=== PATIENT | male | born 1975 | race African-American/Black ===

== ENCOUNTER 2017-01-08 02:47 | Emergency (ER) | payer MEDICAID ==
[~2017-01-08] VITALS: Ht 180.3 cm; Wt 127.0 kg
[2017-01-08 02:52] VITALS: BP_SYST 141
[2017-01-08] MEDS ORDERED: NACL 0.9% 1,000 ML IV ONE (03:15)
[2017-01-08 04:55] VITALS: BP_SYST 146
== END 2017-01-08 04:55 | disposition home or self-care (01) ==
LOC: SED 02:47
DX: R00.0 Tachycardia, unspecified (principal); R03.0 Elevated blood-pressure reading, without diagnosis of hypertension
CPT/HCPCS: 96360; 99284; J7030

== ENCOUNTER 2019-05-23 18:02 | Emergency (ER) | payer BC ==
[~2019-05-23] VITALS: Ht 180.3 cm; Wt 131.5 kg
[2019-05-23 18:02] VITALS: BP_SYST 142
--- NOTE | 2019-05-23 18:03 | NUR ---
Dr Bravo examining patient at triage room
--- NOTE | 2019-05-23 18:29 | NUR ---
Patient to ER bed 3 to gown for evaluation. Side rails up. Report given to ANNETTE Rascon.
--- NOTE | 2019-05-23 18:29 | NUR ---
Note matty in EDM - 05/23/19 at 1829 by [email or web address] Patient to ER bed 3 to nunu for evaluation. Side rails up. Report given to ANNETTE Rascon.
[2019-05-23] MEDS ORDERED: KETOROLAC TROMETHAMINE 30 MG VIAL IM ONE (18:30)
--- NOTE | 2019-05-23 18:30 | NUR ---
Patient is awake, alert, and oriented x4. Pastient reports that last night he was rocking back and forth while watching TV, had sudden onset SOB, headache, and blurry vision. Patient called 911 and was cleared by paramedics saying he didn't have a stroke at 0200. Patient came in for a follow up, is complaining of headache 08/15.
--- NOTE | 2019-05-23 18:44 | NUR ---
Patient transported to radiology via wheelchair, accompanied by automotive exhaust emissions technician.
[2019-05-23 18:46] LABS: BASOPHILS % (AUTO) 0.6 % (0.0-2.0); EOSINOPHILS # (AUTO) 0.3 K/uL (0.0-0.4); EOSINOPHILS % (AUTO) 3.2 % (0.0-4.0); HEMATOCRIT 47.9 % (36-54); HEMOGLOBIN 16.7 g/dL (14.0-18.0); LYMPHOCYTES # (AUTO) 2.6 K/uL (1.0-5.5); LYMPHOCYTES % (AUTO) 30.9 % (20.5-51.5); MEAN CORPUSCULAR HEMOGLOBIN 31 pg (27-31); MEAN CORPUSCULAR HGB CONC 35 % (32-36); MEAN CORPUSCULAR VOLUME 89 fL (79.0-98.0); MONOCYTES # (AUTO) 0.6 K/uL (0.0-1.0); MONOCYTES % (AUTO) 7.1 % (1.7-9.3); NEUTROPHILS # (AUTO) 4.9 K/uL (1.8-7.7); NEUTROPHILS % (AUTO) 58.2 % (40.0-70.0); PLATELET COUNT (AUTO) 286 K/uL (130-430); RED BLOOD CELL COUNT(AUTO) 5.38 MIL/uL (4.2-6.2); RED CELL DISTRIBUTION WIDTH 13.3 % (9.0-15.0); WHITE BLOOD COUNT (AUTO) 8.4 K/uL (4.8-10.8)
[2019-05-23 18:59] LABS: ANION GAP 4 (5-15); CALCIUM 9.2 mg/dL (8.4-11.0); CHLORIDE 99 mmol/L (98-107); CREATININE 1.06 mg/dL (0.55-1.30); GLUCOSE 76 mg/dL (70-99); POTASSIUM 3.8 mmol/L (3.5-5.1); SODIUM SERUM 133 mmol/L (136-145); UREA NITROGEN, BLOOD 9 mg/dL (8-21)
[2019-05-23 19:08] LABS: ALANINE AMINOTRANSFERASE 62 U/L (12-78); ALBUMIN 3.9 g/dL (3.4-4.8); ASPARTATE AMINOTRANSFERASE 25 U/L (10-37); TOTAL BILIRUBIN 0.4 mg/dL (0.0-1.0)
--- NOTE | 2019-05-23 19:11 | NUR ---
Report given to ANNETTE Morales for continuation of care.
[2019-05-23 19:12] LABS: GFR AFRICAN AMERICAN 99 mL/min (>90)
[2019-05-23 19:50] VITALS: BP_SYST 141
--- NOTE | 2019-05-23 19:50 | NUR ---
Patient given written and verbal discharge instructions and verbalizes understanding. ER MD discussed with patient the results and treatment provided. Patient in stable condition. ID arm band removed. Rx of Naproxen given. Patient educated on pain management and to follow up with PMD. Pain Scale 0/10. Opportunity for questions provided and answered. Medication side effect fact sheet provided.
== END 2019-05-23 19:50 | disposition home or self-care (01) ==
LOC: SED 18:02
DX: G43.909 Migraine, unspecified, not intractable, without status migrainosus (principal)
CPT/HCPCS: 36415; 70450; 71045; 80053; 84484; 85025; 93005; 96372; 99284; J1885

== ENCOUNTER 2019-09-26 10:55 | Emergency (ER) | payer BC, OTHER ==
[~2019-09-26] VITALS: Ht 182.9 cm; Wt 126.6 kg
[2019-09-26 11:14] VITALS: BP_SYST 160
[2019-09-26 12:15] VITALS: BP_SYST 126
== END 2019-09-26 12:15 | disposition home or self-care (01) ==
LOC: SED 10:55
DX: I49.3 Ventricular premature depolarization (principal)
CPT/HCPCS: 93005; 99283

== ENCOUNTER 2020-01-23 21:37 | Emergency (ER) | payer OTHER ==
[~2020-01-23] VITALS: Ht 182.9 cm; Wt 125.2 kg
[2020-01-23 21:46] VITALS: BP_SYST 155
--- NOTE | 2020-01-23 22:54 | NUR ---
Patient to ER bed H1 to gown for evaluation. Side rails up.
--- NOTE | 2020-01-23 22:55 | NUR ---
Pt brought by self,A&Ox4, pt presents to ER with anxiety and palpitations, skin pink and warm, cap refill <3, VSS,respirations even and unlabored
--- NOTE | 2020-01-23 23:00 | NUR ---
Dr Hodges assessing patient in the hallway
[2020-01-23 23:22] VITALS: BP_SYST 155
--- NOTE | 2020-01-23 23:27 | NUR ---
Patient given written and verbal discharge instructions and verbalizes understanding. ER MD discussed with patient the results and treatment provided. Patient in stable condition. ID arm band removed. Rx of Xanax given. Patient educated on pain management and to follow up with PMD. Pain Scale 0/10. Opportunity for questions provided and answered. Medication side effect fact sheet provided.
== END 2020-01-23 23:27 | disposition home or self-care (01) ==
LOC: SED 21:37
DX: F41.9 Anxiety disorder, unspecified (principal); R03.0 Elevated blood-pressure reading, without diagnosis of hypertension
CPT/HCPCS: 93005; 99283

== ENCOUNTER 2020-02-29 22:52 | Emergency (ER) | payer OTHER ==
[~2020-02-29] VITALS: Ht 182.9 cm; Wt 115.7 kg
[2020-02-29 23:00] VITALS: BP_SYST 160
[2020-02-29 23:20] VITALS: BP_SYST 160
== END 2020-02-29 23:20 | disposition home or self-care (01) ==
LOC: SED 22:52
DX: R00.2 Palpitations (principal); F41.9 Anxiety disorder, unspecified
CPT/HCPCS: 93005; 99283

== ENCOUNTER 2020-09-02 15:41 | Emergency (ER) | payer OTHER, SELFPAY ==
[~2020-09-02] VITALS: Ht 180.3 cm; Wt 111.1 kg
--- NOTE | 2020-09-02 15:45 | NUR ---
triaged in tent
[2020-09-02 15:49] VITALS: BP_SYST 123
--- NOTE | 2020-09-02 15:53 | NUR ---
Dr. Hodges perfoming a exam at this time
--- NOTE | 2020-09-02 15:55 | NUR ---
Pt came to ER with fatigue, no other complaints. Pt states lack of sleep last night, currently in tent, VSS, awaiting MD.
[2020-09-02 16:07] VITALS: BP_SYST 123
--- NOTE | 2020-09-02 16:08 | NUR ---
Patient given written and verbal discharge instructions and verbalizes understanding. ER MD discussed with patient the results and treatment provided. Patient in stable condition. ID arm band removed. No Rx given. Patient educated on pain management and to follow up with PMD. Pain Scale 0/10. Opportunity for questions provided and answered. Medication side effect fact sheet provided.
== END 2020-09-02 16:07 | disposition home or self-care (01) ==
LOC: SED 15:41
DX: R53.83 Other fatigue (principal); R03.0 Elevated blood-pressure reading, without diagnosis of hypertension; Z20.822 Contact with and (suspected) exposure to COVID-19
CPT/HCPCS: 99283; C9803; U0003

== ENCOUNTER 2023-11-10 19:52 | Emergency (ER) | payer BC, OTHER ==
[~2023-11-10] VITALS: Ht 182.9 cm; Wt 120.2 kg
[~2023-11-10 19:52] MED LIST: FEXO180T94 PO
[2023-11-10 20:13] VITALS: BP_SYST 140; PULSE 70; RESP 18; TEMP 97.3; O2SAT 99
[2023-11-10] MEDS ORDERED: IBUP-1971 PO (21:15)
[2023-11-10 21:21] LABS: INFLUENZA TYPE A Negative (NEGATIVE)
[2023-11-10 21:23] LABS: INFLUENZA TYPE B POSITIVE (NEGATIVE)
[2023-11-10] MEDS ORDERED: OSEL75CA PO (21:25)
[2023-11-10 21:42] LABS: BASOPHILS # (AUTO) 0.1 K/uL (0.0-0.2); EOSINOPHILS # (AUTO) 0.3 K/uL (0.0-0.4); EOSINOPHILS % (AUTO) 3.6 % (0.0-4.0); HEMATOCRIT 45.8 % (36-54); HEMOGLOBIN 15.4 g/dL (14.0-18.0); LYMPHOCYTES # (AUTO) 2.1 K/uL (1.0-5.5); LYMPHOCYTES % (AUTO) 26.4 % (20.5-51.5); MEAN CORPUSCULAR HEMOGLOBIN 29 pg (27-31); MEAN CORPUSCULAR HGB CONC 34 % (32-36); MEAN CORPUSCULAR VOLUME 87 fL (79.0-98.0); MONOCYTES # (AUTO) 0.6 K/uL (0.0-1.0); MONOCYTES % (AUTO) 7.4 % (1.7-9.3); NEUTROPHILS # (AUTO) 4.8 K/uL (1.8-7.7); NEUTROPHILS % (AUTO) 61.6 % (40.0-70.0); PLATELET COUNT (AUTO) 268 K/uL (130-430); RED BLOOD CELL COUNT(AUTO) 5.29 MIL/uL (4.2-6.2); RED CELL DISTRIBUTION WIDTH 13.1 % (9.0-15.0); WHITE BLOOD COUNT (AUTO) 7.8 K/uL (4.8-10.8)
[2023-11-10 22:02] LABS: ALBUMIN 3.7 g/dL (3.4-4.8); CALCIUM 8.7 mg/dL (8.4-11.0); CREATININE 1.02 mg/dL (0.55-1.30); POTASSIUM 4.1 mmol/L (3.5-5.1); TOTAL BILIRUBIN 0.6 mg/dL (0.0-1.0); TOTAL PROTEIN, SERUM 7.9 g/dL (6.4-8.3)
[2023-11-10 22:20] VITALS: BP_SYST 140; PULSE 70; RESP 18; TEMP 97.3; O2SAT 99
== END 2023-11-10 22:20 | disposition home or self-care (01) ==
LOC: SED 19:52
DX: J10.1 Influenza due to other identified influenza virus with other respiratory manifestations (principal); M79.10 Myalgia, unspecified site; Z20.822 Contact with and (suspected) exposure to COVID-19; F41.9 Anxiety disorder, unspecified; Z79.899 Other long term (current) drug therapy
CPT/HCPCS: 36415; 80053; 82550; 83735; 85025; 99283

== ENCOUNTER 2024-02-27 20:42 | Emergency (ER) | payer BC ==
[~2024-02-27] VITALS: Ht 182.9 cm; Wt 115.2 kg
[~2024-02-27 20:42] MED LIST changes: +IBUP-1971 PO; +OSEL75CA PO
[2024-02-27 20:57] VITALS: BP_SYST 143; PULSE 70; RESP 20; TEMP 96.9; O2SAT 97
[2024-02-27 21:30] LABS: BASOPHILS # (AUTO) 0.1 K/uL (0.0-0.2); BASOPHILS % (AUTO) 1.1 % (0.0-2.0); EOSINOPHILS # (AUTO) 0.3 K/uL (0.0-0.4); EOSINOPHILS % (AUTO) 3.5 % (0.0-4.0); HEMATOCRIT 44.6 % (36-54); HEMOGLOBIN 15.2 g/dL (14.0-18.0); LYMPHOCYTES % (AUTO) 23.5 % (20.5-51.5); MEAN CORPUSCULAR HEMOGLOBIN 30 pg (27-31); MEAN CORPUSCULAR HGB CONC 34 % (32-36); MEAN CORPUSCULAR VOLUME 87 fL (79.0-98.0); MONOCYTES # (AUTO) 0.5 K/uL (0.0-1.0); MONOCYTES % (AUTO) 5.5 % (1.7-9.3); NEUTROPHILS # (AUTO) 5.7 K/uL (1.8-7.7); NEUTROPHILS % (AUTO) 66.4 % (40.0-70.0); PLATELET COUNT (AUTO) 261 K/uL (130-430); RED BLOOD CELL COUNT(AUTO) 5.12 MIL/uL (4.2-6.2); RED CELL DISTRIBUTION WIDTH 13.8 % (9.0-15.0); WHITE BLOOD COUNT (AUTO) 8.6 K/uL (4.8-10.8)
[2024-02-27 21:55] LABS: ALANINE AMINOTRANSFERASE 27 U/L (12-78); ALBUMIN 3.7 g/dL (3.4-4.8); ANION GAP 10 (5-15); ASPARTATE AMINOTRANSFERASE 18 U/L (10-37); CALCIUM 8.9 mg/dL (8.4-11.0); CARBON DIOXIDE 24 mmol/L (23-29); CHLORIDE 101 mmol/L (98-107); CREATININE 1.12 mg/dL (0.55-1.30); GFR AFRICAN AMERICAN 91 mL/min (>90); GLUCOSE 116 mg/dL (74-106); POTASSIUM 3.3 mmol/L (3.5-5.1); SODIUM SERUM 135 mmol/L (136-145); TOTAL BILIRUBIN 0.4 mg/dL (0.0-1.0); TOTAL PROTEIN, SERUM 7.7 g/dL (6.4-8.3); UREA NITROGEN, BLOOD 13 mg/dL (8-21)
[2024-02-27 21:57] LABS: BILIRUBIN,DIRECT 0.1 mg/dL (0.0-0.3)
[2024-02-27 21:58] LABS: GFR NON AFRICAN-AMERICAN 75 mL/min (>90)
[2024-02-27 22:15] VITALS: BP_SYST 122; PULSE 65; RESP 18; O2SAT 96
[2024-02-27 22:32] LABS: BARBITURATE, URINE NEGATIVE (NEG <=200); BENZODIAZEPINE, URINE NEGATIVE (NEG <=150); CANNABINOID, URINE NEGATIVE (NEG <=50); COCAINE, URINE NEGATIVE (NEG <=150); METHAMPHETAMINES SCREEN,URINE NEGATIVE (NEG <=500); OPIATE, URINE NEGATIVE (NEG <=100); PHENCYCLIDINE SCREEN,URINE NEGATIVE (NEG <=25); UR TRICYCLIC ANTIDEPRESSANTS NEGATIVE (NEG <=300); URINE AMPHETAMINE NEGATIVE (NEG <=500); URINE METHADONE NEGATIVE (NEG <=200); URINE OXYCODONE SCREEN NEGATIVE (NEG <=100)
== END 2024-02-27 22:17 | disposition home or self-care (01) ==
LOC: SED 20:42
DX: F41.9 Anxiety disorder, unspecified (principal); R07.89 Other chest pain; R42 Dizziness and giddiness; R11.0 Nausea; Z79.899 Other long term (current) drug therapy; Z79.2 Long term (current) use of antibiotics
CPT/HCPCS: 36415; 80048; 80076; 80307; 84484; 85025; 93005; 99284